=== PATIENT | female | born 2000 | race Caucasian/White ===

== ENCOUNTER → 2018-05-08 | Outpatient (CLI) | payer OTHER | LOC: FCPNEURO 23:23 | PROVIDERS: ATTEND Psychiatry & Neurology Sleep Medicine | DX: G47.33 Obstructive sleep apnea (adult) (pediatric) (principal) ==

== ENCOUNTER → 2018-06-20 | Outpatient (CLI) | payer OTHER | LOC: BMCIMAGING 10:33 → MERGE 10:33 | PROVIDERS: ATTEND Family Medicine | DX: S99.912A Unspecified injury of left ankle, initial encounter (principal) ==